=== PATIENT | male | born 1955 | race Caucasian/White ===

== ENCOUNTER → 2024-01-29 08:38 | Outpatient (BNVA) | payer MEDICARE, SELFPAY | PROVIDERS: PCP Nurse Practitioner; Referring Provider Registered Nurse; Visit Provider Orthopaedic Surgery | DX: M54.50 Low back pain, unspecified (principal); M54.9 Dorsalgia, unspecified; G89.29 Other chronic pain | CPT/HCPCS: 72110; 99204 ==

== ENCOUNTER 2024-03-09 10:50 | Observation (INO) | payer MEDICARE, SELFPAY ==
[2024-03-09] VITALS (19 sets, daily range): BP systolic 124–166; BP diastolic 58–86; PULSE 45–58; RESP 11–99; TEMP 36.4–36.7; O2SAT 90–98; BMI 30.3; BMI 30.5
--- NOTE | 2024-03-09 10:51 | ECG_ITS ---
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 Measurements Intervals [place] Rate: 49 P: 31 MO: 163 QRS: -2 QRSD: 93 T: 40 QT: 427 QTc: 388 Interpretive Statements SINUS BRADYCARDIA No previous ECG available for comparison Electronically Signed On 03-09-2024 17:50:21 CDT by Star Fu M.D. [id number]
--- NOTE | 2024-03-09 10:53 | ECG_ITS ---
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 Measurements Intervals [place] Rate: 47 P: 35 ND: 149 QRS: 1 QRSD: 106 T: 35 QT: 442 QTc: 393 Interpretive Statements SINUS BRADYCARDIA MODERATE VOLTAGE CRITERIA FOR LVH, CONSIDER NORMAL VARIANT [MEETS CRITERIA IN ONE OF: R(aVL), S(V1), R(V5), R(V5/V6)+S(V1)] Compared to ECG 03/09/2024 10:51:59 No significant changes Electronically Signed On 03-09-2024 17:47:16 CDT by Star Fu M.D. [id number]
--- NOTE | 2024-03-09 10:53 | XRR_ITS ---
PROCEDURE INFORMATION: Exam: XR Chest Exam date and time: 03/09/2024 11:28 AM Age: 68 years old Clinical indication: Pain; Angina pectoris; Additional info: Chest pain TECHNIQUE: Imaging protocol: Radiologic exam of the chest. Views: 1 view. COMPARISON: CT thoracic spin wo con* [id number] 04/15/2018 12:46 PM FINDINGS: Lungs: No consolidation. Pleural spaces: No sizable pleural effusion or pneumothorax. Heart/Mediastinum: No cardiomegaly. Bones/joints: Unremarkable. XR/XR chest 1V portable [id number] IMPRESSION: No acute intrathoracic findings.
--- NOTE | 2024-03-09 11:14 | ED_ITS ---
Documented by User: JESSICA Medrano 03/09/24 14:47 HPI - Chest Pain 2 General: Chief Complaint: Chest Pain Stated Complaint: chest pain Time Seen by Provider: 03/09/24 10:52 Source: patient and family Mode of arrival: ambulatory Limitations: no limitations History of Present Illness: Patient is a nice 68-year-old male with a history of hyperlipidemia and arthritis here along with his significant other for concerns of dyspnea with exertion and chest pain. Patient states over the past several weeks he has been noticing significant dyspnea with exertion. 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 He states the last Friday he began having what he describes as feeling like a small child was sitting on my chest thus he went to [facility] ED for evaluation. He had an extensive evaluation there including baseline/repeat troponins, EKGs, D-dimer, BNP, CXR all of which were unremarkable. Patient has been scheduled for an echocardiogram this upcoming Friday. He has also been scheduled for carotid artery ultrasounds, stress test, and cardiology follow-up all within the next two weeks. MD complaint: chest pain and other (dyspnea) Onset (ago): day(s) Timing of current episode: episodic Prior episodes: Yes Onset: during exertion Pain location: substernal Pain radiation: none Severity: moderate Quality: heaviness Relieving factors: rest Exacerbating factors: exertion Associated symptoms: Reports no associated symptoms and dyspnea; Deny abdominal pain, fever(s), nausea, palpitations or vomiting Treatment prior to arrival: none Risk Factors: Coronary artery disease risk factors: hyperlipidemia Thoracic aortic dissection risk factors: none Review of Systems 2 Const: Denies: fever(s), chills, body aches, fatigue or malaise Card: Reports: chest pain, pre-syncope and dyspnea on exertion; Denies: palpitations, irregular heart rhythm, edema, swelling of feet/ankles, orthopnea, leg pain with exertion or acrocyanosis Resp: Reports: dyspnea; Denies: productive cough, non-productive cough, wheezing, hemoptysis or chest congestion GI: Denies: abdominal pain, nausea, vomiting or diarrhea Musc: Denies: neck pain, back pain, extremity pain or joint pain Skin/Breast: Denies: rash Neuro: Reports: dizziness (with exertion ); Denies: headache(s), numbness in extremities, weakness in extremities or sensory changes PFSH ED 2 PFSH: Medical History Lower respiratory infection Acute bacterial sinusitis Social History Smoking and tobacco/nicotine status: current every day tobacco/nicotine user Physical Exam 2 Const: COMMON NORMALS: no acute distress, patient oriented x3, no limitations, healthy appearing, alert and well nourished GENERAL APPEARANCE: cooperative ORIENTATION/CONSCIOUSNESS: Yes awake, Yes oriented to person, Yes oriented to place and Yes oriented to time HENMT: COMMON NORMALS: normocephalic and atraumatic HEAD & SCALP: normal to inspection, normocephalic and atraumatic Neck/C-Spine: COMMON NORMALS: full ROM, no lymphadenopathy, supple and no meningeal signs Chest: COMMONS NORMALS: normal inspection of the chest Resp: COMMON NORMALS: normal respiratory effort and clear to auscultation bilaterally AUSCULTATION: clear to auscultation bilaterally Cardio: COMMON NORMALS: regular rate and regular rhythm RATE: regular rate RHYTHM: regular rhythm GI: COMMON NORMALS: Normal to inspection, nondistended, normoactive bowel sounds present, Soft to palpation, non-tender, No hepatosplenomegaly present and no masses PALPATION: Yes Soft to palpation and Yes No hepatosplenomegaly present : COMMON NORMALS: Yes no CVA tenderness BLADDER/KIDNEY EXAM: Yes no CVA tenderness Back/Pelvis: COMMON NORMALS: no CVA tenderness and thoracic and lumbar spine normal to inspection Extremity: COMMON NORMALS: normal to inspection, no clubbing, cyanosis or edema, no calf tenderness and no pedal edema GENERAL: Yes normal exam except as noted Neuro: COMMON NORMALS: patient oriented x3, moves all extremities, no focal motor deficits and no sensory deficits noted SENSORIUM/ORIENTATION: Yes alert, Yes oriented to person, Yes oriented to place and Yes oriented to time MENINGEAL SIGNS: Yes no meningeal signs Skin: COMMON NORMALS: no rashes or lesions noted GENERAL SKIN EXAM: no rashes or lesions noted Course 2 Consultations: Consultation #1: Dr. Larkin-recommends hospitalist admission and he will consult Consultation #2: Dr. Vincent-recommends admit to obs Vital Signs: Vital signs: Vital Signs Temperature 97.6 F 03/09/24 10:53 Pulse Rate 47 L 03/09/24 14:45 Respiratory Rate 14 03/09/24 14:45 Blood Pressure 140/79 03/09/24 14:45 Pulse Oximetry 97 03/09/24 14:45 Oxygen Delivery Me thod Room Air 03/09/24 14:45 MDM - Chest Pain Medical Decision Making Patient is a nice 68-year-old male with a history of hyperlipidemia here for complaints of dyspnea with exertion accompanied with lightheadedness/dizziness/presyncopal episodes, and worsening episodes of chest pain. Symptoms are mainly exertional and improved with rest. Patient's workup here showing a normal baseline troponin. D-dimer is normal. CXR is unremarkable. BNP is pending. EKG showing sinus bradycardia in the 40s. Discussed case with Dr. Rangel who recommends consulting with Dr. Larkin for possible hospitalization. After speaking to him, he does recommend admission to hospitalist due to worsening symptoms and he will consult on patient. DDx include unstable angina, sick sinus syndrome, CAD, symptomatic bradycardia, cardiomyopathy, CHF. Medical Records I reviewed the patient's medical records. Lab Data I reviewed the patient's lab results. 03/09/24 11:08 03/09/24 11:08 Radiology Impressions Chest X-Ray 03/09/24 10:53 IMPRESSION: No acute intrathoracic findings. Laboratory Results WBC 4.97 10^3/uL (3.29-11.43) 03/09/24 11:08 RBC 4.85 10^6/uL (3.85-5.65) 03/09/24 11:08 Hgb 15.40 g/dL (11.27-16.99) 03/09/24 11:08 Hct 45.7 % (37-53) 03/09/24 11:08 MCV 94.2 fl (82-101) 03/09/24 11:08 MCH 31.8 pg (27-33) 03/09/24 11:08 MCHC 33.7 g/dL (30-55) 03/09/24 11:08 RDW 12.5 % (12.1-15.1) 03/09/24 11:08 Plt Count 206 10^3/cmm (157-399) 03/09/24 11:08 MPV 9.7 fL (7.4-10.4) 03/09/24 11:08 Neut % (Auto) 57.4 % 03/09/24 11:08 Lymph % (Auto) 31.4 % 03/09/24 11:08 [place] % (Auto) 8.0 % 03/09/24 11:08 Eos % (Auto) 2.6 % 03/09/24 11:08 Baso % (Auto) 0.4 % 03/09/24 11:08 Neut # (Auto) 2.85 10^3/uL (1.8-7.7) 03/09/24 11:08 Lymph # (Auto) 1.6 10^3/uL (0.8-4.8) 03/09/24 11:08 [place] # (Auto) 0.4 10^3/uL (0.2-0.9) 03/09/24 11:08 Eos # (Auto) 0.1 10^3/uL (0.0-0.8) 03/09/24 11:08 Baso # (Auto) 0.0 10^3/uL (0.0-0.1) 03/09/24 11:08 Nucleated RBC % (auto) 0 % 03/09/24 11:08 Nucleated RBCs # 0.0 /100WBC 03/09/24 11:08 D-Dimer 0.56 ug/mLFEU (0-0.59) 03/09/24 11:08 Sodium 141 mmol/L (136-145) 03/09/24 11:08 Potassium 4.7 mmol/L (3.5-5.1) 03/09/24 11:08 Chloride 106 mmol/L (98-107) 03/09/24 11:08 Carbon Dioxide 25 mmol/L (22-29) 03/09/24 11:08 Anion Gap 14.7 (5-19) 03/09/24 11:08 BUN 19 mg/dL (8-23) 03/09/24 11:08 Creatinine 1.1 mg/dL (0.7-1.2) 03/09/24 11:08 GFR Calculation 66.4 mL/min (90-130) L 03/09/24 11:08 Glucose 88 mg/dL (65-115) 03/09/24 11:08 Calculated Osmolality 294 mOsm/kg (285-295) 03/09/24 11:08 Calcium 9.6 mg/dL (8.5-10.5) 03/09/24 11:08 Total Bilirubin 0.4 mg/dL (0.15-1.2) 03/09/24 11:08 AST 23 U/L (0-40) 03/09/24 11:08 ALT 21 U/L (0-41) 03/09/24 11:08 Alkaline Phosphatase 75 U/L (40-130) 03/09/24 11:08 Troponin T Baseline 9 ng/L (0-15) 03/09/24 11:08 Troponin T 120 Minute 8.32 ng/L (0-15) 03/09/24 12:49 Delta Troponin T -0.68 ABS# (0-10) L 03/09/24 12:49 NT-Pro-B Natriuret Pep < 36 pg/mL (0-125) 03/09/24 12:49 Total Protein 7.7 g/dL (6.6-8.7) 03/09/24 11:08 Albumin 4.3 g/dL (3.5-5.2) 03/09/24 11:08 Globulin 3.4 g/dL (1.3-4.6) 03/09/24 11:08 All radiology interpretation(s) finalized by discharge Discharge Plan Discharge Patient Disposition: Placed in Observation Clinical Impression: Dyspnea on minimal exertion, Chest pain, Bradycardia Coding Level of Care Code ED Lead Burner Helper for Chg Fwd Documented by User: Dane Rangel DO 03/09/24 14:54 HPI - Chest Pain 2 General: Chief Complaint: Chest Pain Stated Complaint: chest pain Time Seen by Provider: 03/09/24 10:52 [facility] ED 2 PFSH: Medical History Lower respiratory infection Acute bacterial sinusitis Social History Smoking and tobacco/nicotine status: current every day tobacco/nicotine user Course 2 Vital Signs: Vital signs: Vital Signs Temperature 97.6 F 03/09/24 10:53 Pulse Rate 47 L 03/09/24 14:45 Respiratory Rate 14 03/09/24 14:45 Blood Pressure 140/79 03/09/24 14:45 Pulse Oximetry 97 03/09/24 14:45 Oxygen Delivery Me thod Room Air 03/09/24 14:45 MDM - Chest Pain Medical Decision Making Patient is a nice 68-year-old male with a history of hyperlipidemia here for complaints of dyspnea with exertion accompanied with lightheadedness/dizziness/presyncopal episodes, and worsening episodes of chest pain. Symptoms are mainly exertional and improved with rest. Patient's workup here showing a normal baseline troponin. D-dimer is normal. CXR is unremarkable. BNP is pending. EKG showing sinus bradycardia in the 40s. Discussed case with Dr. Rangel who recommends consulting with Dr. Larkin for possible hospitalization. After speaking to him, he does recommend admission to hospitalist due to worsening symptoms and he will consult on patient. DDx include unstable angina, sick sinus syndrome, CAD, symptomatic bradycardia, cardiomyopathy, CHF. Chart reviewed and patient discussed with midlevel. Agree with assessment and plan. Lab Data 03/09/24 11:08 03/09/24 11:08 Radiology Impressions Chest X-Ray 03/09/24 10:53 IMPRESSION: No acute intrathoracic findings. Laboratory Results WBC 4.97 10^3/uL (3.29-11.43) 03/09/24 11:08 RBC 4.85 10^6/uL (3.85-5.65) 03/09/24 11:08 Hgb 15.40 g/dL (11.27-16.99) 03/09/24 11:08 Hct 45.7 % (37-53) 03/09/24 11:08 MCV 94.2 fl (82-101) 03/09/24 11:08 MCH 31.8 pg (27-33) 03/09/24 11:08 MCHC 33.7 g/dL (30-55) 03/09/24 11:08 RDW 12.5 % (12.1-15.1) 03/09/24 11:08 Plt Count 206 10^3/cmm (157-399) 03/09/24 11:08 MPV 9.7 fL (7.4-10.4) 03/09/24 11:08 Neut % (Auto) 57.4 % 03/09/24 11:08 Lymph % (Auto) 31.4 % 03/09/24 11:08 [place] % (Auto) 8.0 % 03/09/24 11:08 Eos % (Auto) 2.6 % 03/09/24 11:08 Baso % (Auto) 0.4 % 03/09/24 11:08 Neut # (Auto) 2.85 10^3/uL (1.8-7.7) 03/09/24 11:08 Lymph # (Auto) 1.6 10^3/uL (0.8-4.8) 03/09/24 11:08 [place] # (Auto) 0.4 10^3/uL (0.2-0.9) 03/09/24 11:08 Eos # (Auto) 0.1 10^3/uL (0.0-0.8) 03/09/24 11:08 Baso # (Auto) 0.0 10^3/uL (0.0-0.1) 03/09/24 11:08 Nucleated RBC % (auto) 0 % 03/09/24 11:08 Nucleated RBCs # 0.0 /100WBC 03/09/24 11:08 D-Dimer 0.56 ug/mLFEU (0-0.59) 03/09/24 11:08 Sodium 141 mmol/L (136-145) 03/09/24 11:08 Potassium 4.7 mmol/L (3.5-5.1) 03/09/24 11:08 Chloride 106 mmol/L (98-107) 03/09/24 11:08 Carbon Dioxide 25 mmol/L (22-29) 03/09/24 11:08 Anion Gap 14.7 (5-19) 03/09/24 11:08 BUN 19 mg/dL (8-23) 03/09/24 11:08 Creatinine 1.1 mg/dL (0.7-1.2) 03/09/24 11:08 GFR Calculation 66.4 mL/min (90-130) L 03/09/24 11:08 Glucose 88 mg/dL (65-115) 03/09/24 11:08 Calculated Osmolality 294 mOsm/kg (285-295) 03/09/24 11:08 Calcium 9.6 mg/dL (8.5-10.5) 03/09/24 11:08 Total Bilirubin 0.4 mg/dL (0.15-1.2) 03/09/24 11:08 AST 23 U/L (0-40) 03/09/24 11:08 ALT 21 U/L (0-41) 03/09/24 11:08 Alkaline Phosphatase 75 U/L (40-130) 03/09/24 11:08 Troponin T Baseline 9 ng/L (0-15) 03/09/24 11:08 Troponin T 120 Minute 8.32 ng/L (0-15) 03/09/24 12:49 Delta Troponin T -0.68 ABS# (0-10) L 03/09/24 12:49 NT-Pro-B Natriuret Pep < 36 pg/mL (0-125) 03/09/24 12:49 Total Protein 7.7 g/dL (6.6-8.7) 03/09/24 11:08 Albumin 4.3 g/dL (3.5-5.2) 03/09/24 11:08 Globulin 3.4 g/dL (1.3-4.6) 03/09/24 11:08 Discharge Plan Discharge Patient Disposition: Placed in Observation Clinical Impression: Dyspnea on minimal exertion, Chest pain, Bradycardia Coding Level of Care Code ED Lead Burner Helper for Robin Diamond
[2024-03-09 11:15] LABS: Basophils % 0.4 %; Eosinophils # 0.1 10^3/uL (0.0-0.8); Eosinophils % 2.6 %; Hematocrit 45.7 % (37-53); Lymphocytes # 1.6 10^3/uL (0.8-4.8); Lymphocytes % 31.4 %; Mean Corpuscular HGB Conc 33.7 g/dL (30-55); Mean Corpuscular Hemoglobin 31.8 pg (27-33); Mean Corpuscular Volume 94.2 fl (82-101); Mean Platelet Volume 9.7 fL (7.4-10.4); Monocytes # 0.4 10^3/uL (0.2-0.9); Neutrophils # 2.85 10^3/uL (1.8-7.7); Neutrophils % 57.4 %; Nucleated Red Blood Cells % 0 %; Platelet Count 206 10^3/cmm (157-399); Red Blood Count 4.85 10^6/uL (3.85-5.65); Red Cell Distribution Width 12.5 % (12.1-15.1); White Blood Count 4.97 10^3/uL (3.29-11.43)
[2024-03-09 11:31] LABS: Alanine Aminotransferase 21 U/L (0-41); Albumin Level 4.3 g/dL (3.5-5.2); Alkaline Phosphatase 75 U/L (40-130); Aspartate Amino Transferase 23 U/L (0-40); Blood Urea Nitrogen 19 mg/dL (8-23); Calcium 9.6 mg/dL (8.5-10.5); Carbon Dioxide 25 mmol/L (22-29); Chloride 106 mmol/L (98-107); Creatinine Clr Calc Pharmacy 78.0921; Globulin 3.4 g/dL (1.3-4.6); Glomerular Filtration Rate 66.4 mL/min (90-130); Glucose 88 mg/dL (65-115); Osmolality Calculated 294 mOsm/kg (285-295); Sodium 141 mmol/L (136-145); Total Bilirubin 0.4 mg/dL (0.15-1.2); Total Protein 7.7 g/dL (6.6-8.7)
[2024-03-09 11:33] LABS: Anion Gap 14.7 (5-19); Potassium 4.7 mmol/L (3.5-5.1)
[2024-03-09 11:34] LABS: Troponin(5th) Baseline 9 ng/L (0-15)
[2024-03-09 11:50] LABS: D Dimer 0.56 ug/mLFEU (0-0.59)
[2024-03-09 13:12] LABS: Troponin 5 2HR 8.32 ng/L (0-15); Troponin 5 2HR Delta -0.68 ABS# (0-10)
[2024-03-09 13:24] LABS: NT Pro B Type Natriuretic Pept < 36 pg/mL (0-125)
--- NOTE | 2024-03-09 14:52 | USCV_ITS ---
Jon Salas Age: 68 Gender: M : 1955 Exam Date: 03/09/2024 17:11 Ordering Phys: Dane Rangel DO Technologist: CT Exam Location: [facility] [place] Indication: angina BP: 166 / 81 HR: 42 Rhythm: Sinus Technical Quality: Adequate MEASUREMENTS (Male / Female) Normal Values 2D ECHO LVOT Diameter 2.2 cm LV Ejection Fraction MOD 2C 47.3 % LV Ejection Fraction 2C AL 46.5 % LA Diameter 4.0 cm RA Systolic Volume 4C AL 55.3 ml RA Systolic Volume 4C MOD 51.7 ml Aorta at Sinotubular Diameter 2.9 cm M-MODE LA Ao Ratio MM 1.4 AV Cusp Separation MM 2.1 cm DOPPLER AV Peak Velocity 123.0 cm/s LVOT Peak Velocity 114.0 cm/s AV Area Cont Eq vti 3.9 cm squared AV Area Cont Eq pk 3.5 cm squared MV Peak Velocity 88.0 cm/s MV Area PHT 3.5 cm squared Mitral E to A Ratio 1.0 TV Peak Velocity 100.5 cm/s TR Peak Velocity 103.0 cm/s TR Peak Gradient 4.2 mmHg TV Peak E Velocity 69.0 cm/s Right Atrial Pressure 3.0 mmHg Pulmonary Artery Systolic Pressu 7.2 mmHg PV Peak Velocity 105.5 cm/s FINDINGS Left Ventricle Left ventricle is normal in size. LV systolic function is normal with EF of 55 to 60%. No regional wall abnormalities are seen. Right Ventricle Normal in size and function Right Atrium Normal in size Left Atrium Normal in size Mitral Valve Structurally normal mitral valve. Mild mitral regurgitation. Aortic Valve Aortic valve is thickened. No significant stenosis or regurgitation. Tricuspid Valve Insufficient TR jet to calculate RVSP. Pulmonic Valve Mild pulmonic regurgitation. Pericardium Normal Aorta Normal in size IVC Appears to be normal CONCLUSIONS LV systolic function is normal with EF of 55-60% Mild mitral regurgitation Mild pulmonic regurgitation No comparison studies are available. Star Fu MD (Electronically Signed) Final Date: 10 Mar 2024 09:38 S
--- NOTE | 2024-03-09 15:28 | PM.HP ---
Providers/Chief Complaint Admitting Physician: Julia Vincent MD Primary Care Provider: Jarrett Toscano Chief Complaint: chest pain History of Present Illness Jon Salas is a 68 year old male who presented to the emergency room with chief complaint of chest pain. He describes the pain as something sitting on my chest . It was in the substernal region and came on with minimal exertion. When he has this discomfort he is short of breath. At times he has been mildly diaphoretic. No nausea or vomiting. It was severe enough today to prompt him to come into the emergency room. He has had other episodes of similar discomfort over the last few weeks. He was seen at [facility] a week or so ago, underwent evaluation with what sounds like negative cardiac enzymes and EKGs. He was referred for outpatient echocardiogram and stress testing. These are scheduled for the end of this week or early next week. In talking with him he has had progressively worsening shortness of breath over time with decreasing amount of exertion. His describes him having increasing work of breathing with simply walking around lately. Previously dyspnea occurred with significant exertion only. In talking with him his father at the age of 58 of a heart attack. 1 brother in his 70s from heart problems and he has another brother who has been scheduled for an outpatient cardiac catheterization due to cardiac issues. He himself has never had any formal cardiac workup. He has a history of dyslipidemia for which he takes atorvastatin. He is known to smoke. No personal history of hypertension, diabetes, kidney disease or stroke. Workup in the emergency room today showed a baseline troponin of 9 with a 2-hour troponin of 8.32 leading to a negative delta. BNP was less than 36. Twelve-lead EKG revealed sinus bradycardia with rates in the mid 40s. He is on no medications to account for the bradycardia. He does describe episodes of dizziness with position changes at times and occasionally without position changes. He has not had any syncopal episodes. 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 It was a joint decision between him and his to come in to be evaluated today. Given persistent bradycardia and his cascade of symptoms combined with family history and personal risk factors he is being admitted for further evaluation and treatment. Review of Systems General: Reports: Other (ROS as per HPI or as otherwise noted here) Const: Denies: fever(s) ENMT: Denies: nasal congestion Card: Reports: chest pain, lightheadedness and dyspnea on exertion; Denies: palpitations, edema, syncope or orthopnea Resp: Reports: dyspnea; Denies: productive cough, non-productive cough or chest congestion GI: Denies: nausea, vomiting, change in bowel habits or hematochezia : Denies: difficulty urinating or hematuria Musc: Reports: back pain (chronic) Clay/Lymph: Reports: easy bleeding (if gets cuts/stuck, bleeds easily, free bleeder ); Denies: easy bruising Medications/Allergies Home Medications Medication Instructions Recorded Confirmed Last Taken Type fluoxetine 40 mg capsule 40 mg PO QPM 09/10/21 03/09/24 03/08/24 History atorvastatin 20 mg tablet 20 mg PO QPM 03/09/24 03/09/24 03/08/24 History meloxicam 15 mg tablet 15 mg PO QPM 03/09/24 03/09/24 03/08/24 History Allergies Allergy/AdvReac Type Severity Reaction Status Date / Time cyclobenzaprine Allergy ADR-Drowsy Verified 03/09/24 11:07 tizanidine Allergy ADR-Drowsy Verified 03/09/24 11:56 PFSH Acute PFSH: Medical History (Updated 03/09/24 @ 15:32 by Julia Vincent MD) Lumbar facet arthropathy Osteoarthritis Dyslipidemia Depression Surgical History (Updated 03/09/24 @ 16:08 by Julia Vincent MD) No pertinent past surgical history Family History (Updated 03/09/24 @ 16:09 by Julia Vincent MD) Father , age 58 heart disease CAD (coronary artery disease) Brother , age 70 heart disease CAD (coronary artery disease) Brother CAD (coronary artery disease) Social History (Updated 03/09/24 @ 16:10 by Julia Vincent MD) Smoking and tobacco/nicotine status: current every day tobacco/nicotine user Alcohol intake: never Substance/Drug Use: never Household members: spouse Current occupation: [employer] Vitals/I&O/Wt Last Vital Signs Temp 97.6 F 03/09/24 10:53 Pulse 46 L 03/09/24 15:15 Resp 17 03/09/24 15:15 BP 137/86 03/09/24 15:15 Pulse Ox 96 03/09/24 15:15 O2 Del Method Room Air 03/09/24 15:15 Weight last 48 hrs Weight 101.378 kg Physical Exam Narrative: Patient is awake and alert. Able to provide history. Extraocular movements intact. Moist membranes. Next supple. Lungs clear without wheezing noted. Regular bradycardiac rhythm. No murmurs or rubs. 2+ radial pulses bilaterally. Abdomen soft, nontender. No pitting edema. Speech clear, face symmetric, moves all extremities. No large bruises noted Data 03/09/24 11:08 03/09/24 11:08 Other Labs: Radiology Impressions Chest X-Ray 03/09/24 10:53 IMPRESSION: No acute intrathoracic findings. Laboratory Results WBC 4.97 10^3/uL (3.29-11.43) 03/09/24 11:08 RBC 4.85 10^6/uL (3.85-5.65) 03/09/24 11:08 Hgb 15.40 g/dL (11.27-16.99) 03/09/24 11:08 Hct 45.7 % (37-53) 03/09/24 11:08 MCV 94.2 fl (82-101) 03/09/24 11:08 MCH 31.8 pg (27-33) 03/09/24 11:08 MCHC 33.7 g/dL (30-55) 03/09/24 11:08 RDW 12.5 % (12.1-15.1) 03/09/24 11:08 Plt Count 206 10^3/cmm (157-399) 03/09/24 11:08 MPV 9.7 fL (7.4-10.4) 03/09/24 11:08 Neut % (Auto) 57.4 % 03/09/24 11:08 Lymph % (Auto) 31.4 % 03/09/24 11:08 [place] % (Auto) 8.0 % 03/09/24 11:08 Eos % (Auto) 2.6 % 03/09/24 11:08 Baso % (Auto) 0.4 % 03/09/24 11:08 Neut # (Auto) 2.85 10^3/uL (1.8-7.7) 03/09/24 11:08 Lymph # (Auto) 1.6 10^3/uL (0.8-4.8) 03/09/24 11:08 [place] # (Auto) 0.4 10^3/uL (0.2-0.9) 03/09/24 11:08 Eos # (Auto) 0.1 10^3/uL (0.0-0.8) 03/09/24 11:08 Baso # (Auto) 0.0 10^3/uL (0.0-0.1) 03/09/24 11:08 Nucleated RBC % (auto) 0 % 03/09/24 11:08 Nucleated RBCs # 0.0 /100WBC 03/09/24 11:08 D-Dimer 0.56 ug/mLFEU (0-0.59) 03/09/24 11:08 Sodium 141 mmol/L (136-145) 03/09/24 11:08 Potassium 4.7 mmol/L (3.5-5.1) 03/09/24 11:08 Chloride 106 mmol/L (98-107) 03/09/24 11:08 Carbon Dioxide 25 mmol/L (22-29) 03/09/24 11:08 Anion Gap 14.7 (5-19) 03/09/24 11:08 BUN 19 mg/dL (8-23) 03/09/24 11:08 Creatinine 1.1 mg/dL (0.7-1.2) 03/09/24 11:08 GFR Calculation 66.4 mL/min (90-130) L 03/09/24 11:08 Glucose 88 mg/dL (65-115) 03/09/24 11:08 Calculated Osmolality 294 mOsm/kg (285-295) 03/09/24 11:08 Calcium 9.6 mg/dL (8.5-10.5) 03/09/24 11:08 Total Bilirubin 0.4 mg/dL (0.15-1.2) 03/09/24 11:08 AST 23 U/L (0-40) 03/09/24 11:08 ALT 21 U/L (0-41) 03/09/24 11:08 Alkaline Phosphatase 75 U/L (40-130) 03/09/24 11:08 Troponin T Baseline 9 ng/L (0-15) 03/09/24 11:08 Troponin T 120 Minute 8.32 ng/L (0-15) 03/09/24 12:49 Delta Troponin T -0.68 ABS# (0-10) L 03/09/24 12:49 NT-Pro-B Natriuret Pep < 36 pg/mL (0-125) 03/09/24 12:49 Total Protein 7.7 g/dL (6.6-8.7) 03/09/24 11:08 Albumin 4.3 g/dL (3.5-5.2) 03/09/24 11:08 Globulin 3.4 g/dL (1.3-4.6) 03/09/24 11:08 Other data: VITAL SIGNS FROM PCP OFFICE dating back to 06/2023 A&P Assessment and plan (1) Chest pain: Unstable angina by description. Currently with sinus bradycardia but no other EKG changes. Has associated symptoms of shortness of breath, dizziness, diaphoresis. No personal history of CAD butr risk factors of dyslipidemia and tobacco use along with significant family history of coronary artery disease in father and brothers. (2) Dyspnea on minimal exertion: [place] secondary to above presrntly, but with smoking history could be a component of undiagnosed COPD contributing. (3) Bradycardia: Related to number one. Has had downward trend in heart rate since last fall. Symptomatic with dizziness. (4) Dyslipidemia: Chronically on statin therapy (5) Depression: Major depressive disorder, stable on chronic fluoxetine (6) Osteoarthritis: Predominantly low back pain and hip pain. On Meloxicam chronically. Has seen Dr Grijalva and been referred to Dr Gentile for facet ablations. Plan Tobacco use, does not desire nicotine replacement while here Patient reports that he bleeds easily when stuck/cut Observation admission currently Continue serial cardiac enzymes and EKGs Cardiology consultation to evaluate for cardiac catheterization Will need to cancel outpatient appointments for echo and stress test previously scheduled Echocardiogram Avoid any medications that may contribute to worsening bradycardia Add aspirin therapy Check magnesium level Check A1c and lipid panel for risk stratification Continue home atorvastatin Continue home fluoxetine Will currently hold meloxicam pending further cardiac evaluation Acetaminophen as needed for pain Requested outpt cardiac testing scheduled for next week be cancelled VTE prophylaxis: Lovenox at prophylactic dosing currently GI Prophylaxis: Not currently indicated Antibiotics: none Pending studies: 6-hour troponin and echocardiogram Telemetry: Ordered secondary to bradycardia Thacker: not currently indicated Line(s): peripheral IVs Disposition plan: Home with outpatient follow up anticipated at this time Code Status: Full Code Supportive care otherwise Findings, concerns and plans were discussed with patient and his and they were given an opportunity to ask questions Attestations Medical Necessity Statement*: Anticipated stay less than 2 midnights in this gentleman presenting with chest pain and shortness of breath also found to have some bradycardia. Review of external records shows that he has had some degree of sinus bradycardia at least since the fall of last year. 2-hour troponin delta is negative. Symptoms however are concerning for unstable angina given the progressive nature particularly in light of what appears to be worsening bradycardia over time. No medications to account for bradycardia. Has a history of hyperlipidemia and tobacco use but no personal history of known coronary artery disease. Diagnoses Chest pain R07.9 Dyspnea on minimal exertion R06.09 Bradycardia R00.1 Dyslipidemia E78.5 Depression F32.A Osteoarthritis M19.90
--- NOTE | 2024-03-09 16:06 | PM.CONSULT ---
Providers/Reason For Consult Consulting Physician/Specialty*: Star Fu MD/ Cardiology Reason for Consult*: Worsening angina Requesting Physician: Dr Rangel Attending Physician: Julia Vincent MD Primary Care Provider: Jarrett Toscano History of Present Illness History of Present Illness Jon Salas is a 68 year old male with past medical history of hypertension who has presented to hospital with substernal pressure. Patient was seen for similar symptoms about a week ago at outside hospital where ACS was ruled out. He has been having worsening chest pressure and shortness of breath. Minimal exertion brings symptoms on. EKG does not demonstrate significant ischemic changes however he is in sinus bradycardia. Troponins have not trended up. Review of Systems General: Reports: Other (ROS as per HPI or as otherwise noted here) Const: Denies: fever(s) ENMT: Denies: nasal congestion Card: Reports: chest pain, lightheadedness and dyspnea on exertion; Denies: palpitations, edema, syncope or orthopnea Resp: Reports: dyspnea; Denies: productive cough, non-productive cough or chest congestion GI: Denies: nausea, vomiting, change in bowel habits or hematochezia : Denies: difficulty urinating or hematuria Musc: Reports: back pain (chronic) Clay/Lymph: Reports: easy bleeding (if gets cuts/stuck, bleeds easily, free bleeder ); Denies: easy bruising Medications/Allergies Home Medications Medication Instructions Recorded Confirmed Last Taken Type fluoxetine 40 mg capsule 40 mg PO QPM 09/10/21 03/09/24 03/08/24 History atorvastatin 20 mg tablet 20 mg PO QPM 03/09/24 03/09/24 03/08/24 History meloxicam 15 mg tablet 15 mg PO QPM 03/09/24 03/09/24 03/08/24 History amlodipine 10 mg tablet 10 mg PO DAILY #60 tabs 03/10/24 Unknown Rx aspirin 81 mg tablet,delayed 81 mg PO DAILY #60 tabs 03/10/24 Unknown Rx release Allergies Allergy/AdvReac Type Severity Reaction Status Date / Time cyclobenzaprine Allergy ADR-Drowsy Verified 03/09/24 11:07 tizanidine Allergy ADR-Drowsy Verified 03/09/24 11:56 PFSH Acute PFSH: Medical History (Updated 03/11/24 @ 00:01 by BEBETO Eldridge) Bradycardia Chest pain Dyspnea on minimal exertion Lumbar facet arthropathy Osteoarthritis Dyslipidemia Depression Surgical History (Updated 03/09/24 @ 16:08 by Julia Vincent MD) No pertinent past surgical history Family History (Updated 03/09/24 @ 16:09 by Julia Vincent MD) Father , age 58 heart disease CAD (coronary artery disease) Brother , age 70 heart disease CAD (coronary artery disease) Brother CAD (coronary artery disease) Social History (Updated 03/09/24 @ 16:10 by Julia Vincent MD) Smoking and tobacco/nicotine status: current every day tobacco/nicotine user Alcohol intake: never Substance/Drug Use: never Household members: spouse Current occupation: [employer] Vitals/I&O/Wt Last Vital Signs Temp 97.6 F 03/09/24 10:53 Pulse 49 L 03/09/24 15:45 Resp 14 03/09/24 15:45 BP 154/80 03/09/24 15:45 Pulse Ox 97 03/09/24 15:45 O2 Del Method Room Air 03/09/24 15:45 Weight last 48 hrs Weight 223 lb 8 oz Physical Exam Narrative: GENERAL: Patient is alert, awake and oriented x3. [] NECK: No jugular vein distension. [] HEENT: No cyanosis. No icterus. No pallor. [] HEART: Regular S1 and S2. No murmur, rub or gallop. [] LUNGS: Clear to auscultate bilaterally. [] CENTRAL NERVOUS SYSTEM: Grossly nonfocal. [] EXTREMITIES: Lower extremities with no edema bilaterally Data 03/09/24 11:08 03/09/24 11:08 A&P Assessment and plan (1) Chest pain: (2) Dyspnea on minimal exertion: (3) Bradycardia: (4) Dyslipidemia: Plan Patient has presented with significant worsening symptoms of chest pain and dyspnea on exertion. We will proceed with coronary angiogram with possible PCI. Risks and benefits discussed. This is his second visit to hospital/ER in the last 1 to 2 weeks. NPO past midnight Order echocardiogram Thank you for involving us with care of this patient. We will continue to follow. Please call with questions. Consult Attestations Medical Necessity Statement: Care expected to cross 2 midnights. Coding Level of Care Code Acute Code for [facility] Fwd Diagnoses Chest pain R07.9 Dyspnea on minimal exertion R06.09 Bradycardia R00.1 Dyslipidemia E78.5
[2024-03-09] MEDS: atorvastatin 40 mg Tablet 20 MG PO (16:29)
[2024-03-09] MEDS: enoxaparin 40 mg/0.4 mL Syringe SUBCUT (16:30)
--- NOTE | 2024-03-09 16:53 | ECG_ITS ---
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 Measurements Intervals [place] Rate: 53 P: 48 WA: 166 QRS: 9 QRSD: 105 T: 48 QT: 454 QTc: 428 Interpretive Statements SINUS BRADYCARDIA WITH OCCASIONAL VENTRICULAR PREMATURE COMPLEXES MINIMAL VOLTAGE CRITERIA FOR LVH, CONSIDER NORMAL VARIANT [MEETS CRITERIA IN ONE OF: R(aVL), S(V1), R(V5), R(V5/V6)+S(V1)] Compared to ECG 03/09/2024 12:03:07 Ventricular premature complex(es) now present Electronically Signed On 03-10-2024 16:29:52 CDT by Star Fu M.D. [id number]
[2024-03-09 17:19] LABS: Magnesium 2.2 mg/dL (1.7-2.3)
[2024-03-09 18:04] LABS: Troponin 5 6HR 8.86 ng/L (0-15)
[2024-03-09 18:10] LABS: Troponin 5 6HR Delta -0.14 ng/L (0-12)
[2024-03-09] MEDS: fluoxetine 20 mg Capsule 40 MG PO (20:46)
[2024-03-10] VITALS (21 sets, daily range): BP systolic 109–170; BP diastolic 63–85; PULSE 0–57; RESP 15–29; TEMP 36.6–36.7; O2SAT 89–97; BMI 30.5
[2024-03-10 05:37] LABS: Estmated Average Glucose 105; Hemoglobin A1C 5.3 % (4.0-6.0)
[2024-03-10 05:41] LABS: Chol HDL Ratio 3.89 mg/dL (1.0-5.00); Cholesterol 144 mg/dL (0-200); HDL Cholesterol 37 mg/dL (60-100); LDL Cholesterol Calculated 86 mg/dL (50-129); LDL HDL Ratio 2.32 RATIO (0.00-3.22); Triglycerides 107 mg/dL (0-150)
[2024-03-10] MEDS: diphenhydrAMINE 50 mg Capsule PO (05:57)
[2024-03-10] MEDS: aspirin 325 mg Tablet PO (05:57)
[2024-03-10] MEDS: sodium chloride 0.9% 1,000 ML 50 ML IV (05:57)
--- NOTE | 2024-03-10 06:00 | XACV_ITS ---
Exam Room: [facility] Ht: 183 cm Wt: 102 kg BSA: 2.30 m2 Gender: Male : 1955 Any Known Allergies: Other Exam Priority: Routine Procedure(s): Procedure Description: Diagnostic procedure Procedure Description: Coronary IVUS Procedure Description: Miscellaneous Procedure Description: Angio-Seal Procedure Description: ACT Procedure Description: Coronary Angiography Procedure Description: Pressure Wire Diagnostic Cath Status: Urgent Diagnostic Findings * Left Main has mild 20% stenosis. * Right Coronary Artery has no significant disease. * Ostial Left Anterior Descending: mild to moderate 40% stenosis, NOHELIA: 3 flow. * Proximal Circumflex: moderate 50% stenosis, NOHELIA: 3 flow. * Coronary angiography shows right dominance. Interventional Findings * Procedure detail: We engaged left main artery with XB 3.5 guide catheter. IV heparin was administered to maintain anticoagulation. After normalization, IFR wire was advanced into the circumflex artery. iFR value was 1.0 was obtained. As it was nonischemic, IFR wire was removed. Ostial LAD was assessed with IVUS which showed a minimum luminal area of 3.7 mm2. As this was nonsignificant, we decided to treat it medically.Guidewire and guidecatheter were removed. 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 . Conclusions 1. There is moderate coronary artery disease with two vessel disease. Non significant based on iFR and IVUS data. Medical therapy. Recommendations * Aggressive risk factor modification. * Outpatient cardiology follow up in 4 weeks. Interventional RX Recommendation: medical therapy and/or counseling Diagnostic RX Recommendation: other cardiac therapy w/o CABG/PCI Anticoagulation: Heparin Pressures Phase:Rest AO : 106 / 69 ( 85 ) @ 8:27:00 AM 109 / 103 ( 79 ) @ 8:28:00 AM 129 / 83 ( 103 ) @ 8:42:00 AM 156 / 80 ( 108 ) @ 8:47:00 AM 144 / 82 ( 106 ) @ 8:49:00 AM 145 / 85 ( 109 ) @ 8:58:00 AM 159 / 88 ( 115 ) @ 9:01:00 AM 162 / 159 ( 111 ) @ 9:06:00 AM Clinical Evaluation EBL: 5mL-10mL Procedural Details Procedure Consent Obtained. Current Diagnosis : NSTEMI. Pre-Procedure Time Out. Identified patient by full name and date of as verbalized by the patient/guarantor. Does the consent match the physician's order: Yes. Accurate & Complete Informed Consent: Yes. Inpatient/Outpatient History & Physical on Chart: Yes. If H&P is completed, is and addenduem needed: No; If yes, is the addendum complete: N/A. Visualize and Verify Site with Patient/Guarantor: N/A. Relevant Radiology Images available: Yes. Pre-op teaching completed and patient verbalized understanding. The risks, benefits, and alternatives of sedation and/or procedure were discussed by physician. The patient agrees to continue. Procedure started. [facility] Clinical Fraility Score: 3: Managing Well. 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 Chest Pain Symptom Assessment: Typical Angina Symptoms. Correct patient, site and procedure confirmed by cath team. Current diagnosis: NSTEMI. PERRLA. Strong, equal hand manager solar bilaterally. Lungs clear x 5 lobes. IV Site on Arrival: 18 gauge in the left anticubital. IV Fluids: 0.9% NaCl at KVO. 0 mL infused prior to starch factory laborer. Oxygen started at 2liters/min via nasal canula. right groin was prepped with chloroprep then draped in the usual sterile fashion. right radial was prepped with chloroprep then draped in the usual sterile fashion. Baseline sample Acquired. HR: 28 BPM. Physician arrived. Physician scrubbed in. Immediate Pre-Procedure Time Out. Correct Patient: Yes; Correct Procedure: Yes; Correct Site: Yes; Correct Patient Position: Yes; Correct Supplies: Yes; Dried Flammable Prep: Yes; Blood Products Available: N/A;. Lidocaine 1% infiltrated to the right radial. Arterial access obtained. A 5 algerian TIG catheter in over wire. Multiple views taken of right coronary artery. Catheter removed over the exchange wire. A 5 algerian JL3.5 catheter in over wire. Catheter removed over the exchange wire. 6 algerian XB 3 guide catheter was inserted over the wire. Catheter removed over the exchange wire. A 5 algerian JL4 catheter in over wire. Catheter removed over the exchange wire. A TR Band was successful obtaining hemostatsis at the Right Radial artery insertion site. Lidocaine 1% infiltrated to the right groin. Arterial access obtained with micropuncture set. A 5 algerian JL4 catheter in over wire. Multiple views taken of left coronary artery. Catheter removed over the exchange wire. 6 algerian XB 3 guide catheter was inserted over the wire. Guide seated in the left coronary system. IFR guidewire was advanced through the guide catheter to lesion in the prox Circ. Runthrough guidewire was advanced through the guide catheter to lesion in the prox Circ. IFR wire out. IVUS catheter inserted and advanced OTW. IVUS catheter out OTW. IFR inserted through the guide catheter and advanced to the CX. Runthrough wire out. IFR Results: 1.0. Wire out. IFR wire inserted and advanced to the LAD. IVUS catheter inserted OTW and advanced to the LAD. IVUS measurements obtained. IVUS catheter out OTW. Wire out. Guide catheter out. ACT drawn. Results 369 seconds. Therapeutic limits - pre-heparin administration 90-150 seconds and monitoring heparin during a vascular procedure >250 seconds. A Right femoral angiogram was performed to determine safe placement of closure device. A Angio-Seal VIP ([place]) was successful obtaining hemostatsis at the Right Femoral artery insertion site. Post Procedure: Pulses reassessed and unchanged. PERRLA. Strong, equal hand manager solar bilaterally. No VTE prophylaxis required. Medication's Wasted: Heparin = 1000 units. Total IV fluids: 100 mL. Medication's Wasted: Nitro = 49.8 mcg. Medication's Wasted: Other = Fentanyl 50 mcg. Complications: None. Estimated blood loss: 5mL-10mL. Responsiveness - Normal response to verbal stimuli; alert and oriented, PERRLA. Airway - Unaffected, no intervention required; spontaneous ventilation. Circulation: W/N/L, pulses unchanged. Nausea/Vomiting: No. Procedure completed. Patient transferred by bed to CPRU. Vital chart was stopped. Access Site Site: Right Radial artery Sheath Size: 6 Fr Hemostasis Method: TR Band Hemostasis Success: Successful Site: Right Femoral artery Sheath Size: 6 Fr Hemostasis Method: Angio-Seal VIP ([facility]) Hemostasis Success: Successful Procedure Medications Start: 7:04 AM Stop: 7:04 AM Medication: Versed Amount: 1 mg Route: I.V. Start: 7:06 AM Stop: 7:06 AM Medication: Fentanyl Amount: 25 mcg Route: I.V. Start: 7:14 AM Stop: 7:14 AM Medication: Fentanyl Amount: 25 mcg Route: I.V. Start: 7:15 AM Stop: 7:15 AM Medication: Nitrogylcerin Amount: 200 mcg Route: I.A. Start: 7:17 AM Stop: 7:17 AM Medication: Heparin Amount: 5000 units Route: I.V. Start: 7:37 AM Stop: 7:37 AM Medication: Versed Amount: 1 mg Route: I.V. Start: 7:49 AM Stop: 7:49 AM Medication: Heparin Amount: 4000 units Route: I.V. Start: 8:06 AM Stop: 8:06 AM Medication: Heparin Amount: 1000 units Route: I.V. I, the attending physician, have reviewed and verified all procedure medications. Yes, all medications given per verbal order History/Risk Factors Hypertension: No Dyslipidemia: Yes Peripheral Arterial Disease (PAD): No Myocardial Infarction (KS): No Obesity: No Renal Disease: No Tobacco Use: Current/Recent(w/in 1 year) Prior Interventions PCI: No CABG: No Valve Surgery: No Report Signatures Finalized by Star Fu MD on 03/21/2024 12:11 PM
--- NOTE | 2024-03-10 07:00 | PC.NURSE ---
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 Patient denies pain at this time.
--- NOTE | 2024-03-10 07:08 | W.PM.OPSUD ---
Surgery/Procedure H&P Update DATE OF PROCEDURE: March 10, 2024 DATE H&P PERFORMED: 03/09/24 H&P UPDATE INFORMATION: I have reviewed H&P completed within last 30 days, I have examined patient prior to procedure and No changes to prior documentation PREOP DIAGNOSIS: Worsening angina PRIMARY INDICATION FOR PROCEDURE: Worsening angina PLANNED PROCEDURE: Left heart cath with possible percutaneous coronary intervention PATIENT REASSESSED PRIOR TO SEDATION, WITH NO CHANGE NOTED: Yes PHYSICAL EXAM: alert, oriented x 3, clear to auscultation bilaterally and regular rate & rhythm AIRWAY EVAL/ANESTHESIA PLAN: normal airway, ASA III, Local Anesthesia, Risks, benefits & alternatives of sedation and/or procedure discussed and Patient agrees to continue as planned ADDITIONAL INFORMATION: Moderate sedation
--- NOTE | 2024-03-10 08:30 | SUR.EXTENDED ---
Received the patient back from the laborer cutting tool via bed s/p Diagnostic [facility]. Patient drowsy. Awakens to verbal stimuli. A & 0 x 3. monitoring analyst placed and vital signs obtained. Right femoral access site with deployed Angioseal. Bedrest x 4 hours, may ambulate at 1220. Right radial access site with intact TR band. No bleeding or hematoma noted at ither site. Dressing D/I. Will transfer to room 102 after recovery. Family at bedside. No concerns voiced at this time.
--- NOTE | 2024-03-10 08:59 | PC.NURSE ---
0900 dose of Aspirin 81mg PO not given at this time. Patient received Aspirin 325 PO at 0557 this morning.
--- NOTE | 2024-03-10 09:29 | PC.NURSE ---
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 Patient has TR Band to right wrist and angioseal to right groin. Both sites are free from obvious bleeding or hematoma formation. Pulse palpable. Patient denies pain to sites. Instructed patient on site care and restrictions. Patient and spouse verbalized complete understanding.
--- NOTE | 2024-03-10 09:45 | PC.NURSE ---
Corrected SDOH documentation at this time.
--- NOTE | 2024-03-10 10:20 | P.PN_ITS ---
Subjective 2 Subjective: Patient had coronary angiogram today that showed moderate proximal left circumflex artery stenosis. IFR was negative for ischemia. Mild to moderate ostial LAD stenosis was also confirmed to be nonsevere by IVUS. Vitals/I&O/Wt Last Vital Signs Temp 98.0 F 03/10/24 09:28 Pulse 51 L 03/10/24 09:32 Resp 15 03/10/24 09:32 BP 141/78 03/10/24 09:32 Pulse Ox 97 03/10/24 09:32 O2 Del Method Room Air 03/10/24 09:28 03/09/24 03/10/24 03/10/24 22:59 06:59 14:59 Intake Total 240 / 240 Balance 240 / 240 Weight last 48 hrs Weight 225 lb Weight 225 lb Weight 223 lb 8 oz Physical Exam 2 Narrative: GENERAL: Patient is alert, awake and oriented x3. [] NECK: No jugular vein distension. [] HEENT: No cyanosis. No icterus. No pallor. [] HEART: Regular S1 and S2. No murmur, rub or gallop. [] LUNGS: Clear to auscultate bilaterally. [] CENTRAL NERVOUS SYSTEM: Grossly nonfocal. [] EXTREMITIES: Lower extremities with no edema bilaterally. Data 03/09/24 11:08 03/09/24 11:08 A&P Assessment and plan (1) Chest pain: (2) Dyspnea on minimal exertion: (3) Bradycardia: (4) Dyslipidemia: Plan Patient underwent coronary angiogram that demonstrated moderate to proximal left circumflex artery stenosis s/p IFR that is nonischemic. medical therapy. Ostial LAD mild to moderate stenosis also found to be nonsignificant on IVUS. We can start a low-dose Imdur. Will need aggressive blood pressure management. Start amlodipine 10 mg daily. ECHO shows normal LV systolic function Thank you for involving us with care of this patient. We will continue to follow. Please call with questions. Attestations 2 Medical Necessity Statement*: Care expected to cross 2 midnights. Coding Level of Care Code Acute Code for [facility] Fwd Diagnoses Chest pain R07.9 Dyspnea on minimal exertion R06.09 Bradycardia R00.1 Dyslipidemia E78.5
[2024-03-10] MEDS: amlodipine 10 mg Tablet PO (10:41)
--- NOTE | 2024-03-10 11:16 | PC.NURSE ---
Initiated air removal from TR Band at 1000 removing 2-3ml air every 15-20min until all air removed at this time. No s/s of bleeding or hematoma formation observed. Covered site with 2x[address] Fu at bedside. Will continue to monitor.
--- NOTE | 2024-03-10 12:06 | PM.DCS ---
Discharge Providers Date of Admission: 03/09/24 15:38 Date of Discharge: March 10, 2024 Attending Provider at Admission: Julia Vincent MD Attending Provider at Discharge: Amisha Mansfield MD Primary Care Provider: Jarrett Toscano Diagnoses at Discharge Discharge Diagnosis (1) Chest pain: Status: Acute (2) Dyspnea on minimal exertion: Status: Acute (3) Bradycardia: Status: Acute (4) Dyslipidemia: Status: Chronic Reason for Visit Reason for Visit: chest pain Hospital Course Hospital Course 68-year male who was evaluated and managed for chest pain with bradycardia, cardiology was consulted, patient went for coronary angiogram next day which showed atherosclerotic disease no stents were placed, his atherosclerotic disease was about 40 to 50%, EKG showed sinus bradycardia, patient is not on any beta blocking agent, no clinical signs of fluid overload Echo showed preserved ejection fraction, no wall motion abnormality, I did convey my concerns relating to bradycardia I have explained what other symptoms of low heart rate which are chest pain shortness of breath confusion and low blood pressure, patient has none of that. At this point would not look into pacemaker evaluation, he may follow-up with cardiology outpatient within 2 weeks, cardiology has cleared him to go home today with stable hemodynamics, TR wristband has been removed. Hemodynamically stable. Hemoglobin A1c is 5.3. D-dimer unremarkable, , magnesium 2.2. Physical Exam Narrative: Pleasant cooperative GCS 15 Heart rate fluctuate between 55-60, sinus rhythm Hemodynamically stable Currently on room air Discharge Data Studies Completed and Pending Completed Studies During Hospitalization Category Date Time Status XR chest 1V portable [id number] Urgent Exams 03/09/24 10:53 Completed US echo complete [CV. 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 Laboratory Results WBC 4.97 10^3/uL (3.29-11.43) 03/09/24 11:08 RBC 4.85 10^6/uL (3.85-5.65) 03/09/24 11:08 Hgb 15.40 g/dL (11.27-16.99) 03/09/24 11:08 Hct 45.7 % (37-53) 03/09/24 11:08 MCV 94.2 fl (82-101) 03/09/24 11:08 MCH 31.8 pg (27-33) 03/09/24 11:08 MCHC 33.7 g/dL (30-55) 03/09/24 11:08 RDW 12.5 % (12.1-15.1) 03/09/24 11:08 Plt Count 206 10^3/cmm (157-399) 03/09/24 11:08 MPV 9.7 fL (7.4-10.4) 03/09/24 11:08 Neut % (Auto) 57.4 % 03/09/24 11:08 Lymph % (Auto) 31.4 % 03/09/24 11:08 Atkinson % (Auto) 8.0 % 03/09/24 11:08 Eos % (Auto) 2.6 % 03/09/24 11:08 Baso % (Auto) 0.4 % 03/09/24 11:08 Neut # (Auto) 2.85 10^3/uL (1.8-7.7) 03/09/24 11:08 Lymph # (Auto) 1.6 10^3/uL (0.8-4.8) 03/09/24 11:08 Atkinson # (Auto) 0.4 10^3/uL (0.2-0.9) 03/09/24 11:08 Eos # (Auto) 0.1 10^3/uL (0.0-0.8) 03/09/24 11:08 Baso # (Auto) 0.0 10^3/uL (0.0-0.1) 03/09/24 11:08 Nucleated RBC % (auto) 0 % 03/09/24 11:08 Nucleated RBCs # 0.0 /100WBC 03/09/24 11:08 D-Dimer 0.56 ug/mLFEU (0-0.59) 03/09/24 11:08 Sodium 141 mmol/L (136-145) 03/09/24 11:08 Potassium 4.7 mmol/L (3.5-5.1) 03/09/24 11:08 Chloride 106 mmol/L (98-107) 03/09/24 11:08 Carbon Dioxide 25 mmol/L (22-29) 03/09/24 11:08 Anion Gap 14.7 (5-19) 03/09/24 11:08 BUN 19 mg/dL (8-23) 03/09/24 11:08 Creatinine 1.1 mg/dL (0.7-1.2) 03/09/24 11:08 GFR Calculation 66.4 mL/min (90-130) L 03/09/24 11:08 Glucose 88 mg/dL (65-115) 03/09/24 11:08 Estimat Average Glucose 105 03/10/24 05:06 Hemoglobin A1c 5.3 % (4.0-6.0) 03/10/24 05:06 Calculated Osmolality 294 mOsm/kg (285-295) 03/09/24 11:08 Calcium 9.6 mg/dL (8.5-10.5) 03/09/24 11:08 Magnesium 2.2 mg/dL (1.7-2.3) 03/09/24 12:49 Total Bilirubin 0.4 mg/dL (0.15-1.2) 03/09/24 11:08 AST 23 U/L (0-40) 03/09/24 11:08 ALT 21 U/L (0-41) 03/09/24 11:08 Alkaline Phosphatase 75 U/L (40-130) 03/09/24 11:08 Troponin T Baseline 9 ng/L (0-15) 03/09/24 11:08 Troponin T 120 Minute 8.32 ng/L (0-15) 03/09/24 12:49 Delta Troponin T -0.68 ABS# (0-10) L 03/09/24 12:49 Troponin T Hi Sens 6Hr 8.86 ng/L (0-15) 03/09/24 17:25 Troponin T Hi Sens 6Hr Delta -0.14 ng/L (0-12) L 03/09/24 17:25 NT-Pro-B Natriuret Pep < 36 pg/mL (0-125) 03/09/24 12:49 Total Protein 7.7 g/dL (6.6-8.7) 03/09/24 11:08 Albumin 4.3 g/dL (3.5-5.2) 03/09/24 11:08 Globulin 3.4 g/dL (1.3-4.6) 03/09/24 11:08 Triglycerides 107 mg/dL (0-150) 03/10/24 05:06 Cholesterol 144 mg/dL (0-200) 03/10/24 05:06 LDL Cholesterol, Calc 86 mg/dL (50-129) 03/10/24 05:06 HDL Cholesterol 37 mg/dL (60-100) L 03/10/24 05:06 LDL/HDL Ratio 2.32 RATIO (0.00-3.22) 03/10/24 05:06 Cholesterol/HDL Ratio 3.89 mg/dL (1.0-5.00) 03/10/24 05:06 Vitals Last Vital Signs Temp 97.9 F 03/10/24 11:20 Pulse 53 L 03/10/24 11:20 Resp 20 H 03/10/24 11:20 BP 129/78 03/10/24 11:20 Pulse Ox 93 03/10/24 11:20 O2 Del Method Room Air 03/10/24 11:20 Discharge Plan Discharge Patient Disposition: Home Condition: Stable Prescriptions: New aspirin 81 mg Tablet,Delayed Release (Dr/Ec) 81 mg PO DAILY Qty: 60 2RF amlodipine 10 mg Tablet 10 mg PO DAILY Qty: 60 3RF Continued fluoxetine 40 mg capsule 40 mg PO QPM atorvastatin 20 mg tablet 20 mg PO QPM meloxicam 15 mg tablet 15 mg PO QPM Discharge Orders: Discharge Order (Routine); Ordered 03/10/24 Ordered By: Amisha Mansfield Referrals: Jarrett Toscano [Primary Care Provider] - Vale Morris FNP [Nurse Practitioner] - 3 weeks Discharge Diet: Cardiac Discharge Activity: Increase activity as tolerated Patient Instructions: Opioid Safety Discharge Attestations Time Spent in Discharge Care*: greater than 30 min Quality Metrics Clinical Quality Measures [ No reported AMI, CVA or VTE this stay] Coding Level of Care Code Acute Code for [facility] Fwd Diagnoses Chest pain R07.9 Dyspnea on minimal exertion R06.09 Bradycardia R00.1 Dyslipidemia E78.5
--- NOTE | 2024-03-10 12:47 | PC.NURSE ---
Patient discharged to home. Medications transmitted to [place], [place]. Instruction given regarding new medications, follow up appointments and site care/restrictions. Patient and spouse verbalized complete understanding. Both right femoral and right radial access site dressings remain c,d,i with NO s/s of bleeding or hematoma formation. Patient denies pain to either site. Patient taken by wheelchair to private vehicle via wheelchair with spouse to drive.
[2024-03-10 13:06] LABS: Thyroid Stimulating Hormone 3.12 uIU/mL (0.27-4.20)
== END 2024-03-10 12:56 | disposition home or self-care (01) ==
LOC: ER 14:47 → CSU 19:17
PROVIDERS: Internal Medicine; Admitting Provider Hospitalist; Emergency Provider Physician Assistant; PCP Family Medicine; Visit Provider Internal Medicine
DX: I25.10 Atherosclerotic heart disease of native coronary artery without angina pectoris (principal); R06.09 Other forms of dyspnea; R00.1 Bradycardia, unspecified; E78.5 Hyperlipidemia, unspecified; M19.90 Unspecified osteoarthritis, unspecified site; F32.A Depression, unspecified; F17.200 Nicotine dependence, unspecified, uncomplicated
CPT/HCPCS: 36415; 71045; 80053; 80061; 83036; 83735; 83880; 84443; 84484; 85025; 85347; 85378; 92978; 93005; 93306; 93454; 93571; 96372; 96374; 96375; 99152; 99153; 99285; C1753; C1760; C1769; C1887; C1894; G0269; G0378; J1644; J1650; J2250; J3010; J3490; J7030; Q0163; Q9967

== ENCOUNTER → 2024-03-23 14:12 | Outpatient (BNVA) | payer MEDICARE, SELFPAY | PROVIDERS: PCP Family Medicine; Visit Provider Nurse Practitioner Family | DX: I25.10 Atherosclerotic heart disease of native coronary artery without angina pectoris (principal); I10 Essential (primary) hypertension; F17.210 Nicotine dependence, cigarettes, uncomplicated | CPT/HCPCS: 99214 ==

== ENCOUNTER 2024-04-21 10:03 | Outpatient (CLI) | payer MEDICARE, SELFPAY | END 2024-04-21 10:04 | disposition home or self-care (01) | PROVIDERS: PCP Family Medicine; Visit Provider Nurse Practitioner Family | DX: R06.09 Other forms of dyspnea (principal); R94.2 Abnormal results of pulmonary function studies | CPT/HCPCS: 94010; 94726; 94729 ==

== ENCOUNTER → 2024-05-27 13:18 | Outpatient (BNVA) | payer MEDICARE, SELFPAY | PROVIDERS: PCP Family Medicine; Visit Provider Internal Medicine | DX: I25.10 Atherosclerotic heart disease of native coronary artery without angina pectoris (principal); I10 Essential (primary) hypertension; Z72.0 Tobacco use | CPT/HCPCS: 99214 ==

== ENCOUNTER 2024-07-17 06:12 | Emergency (ER) | payer MEDICARE, SELFPAY ==
[2024-07-17 06:15] VITALS: BP 156/83; PULSE 56; RESP 23; O2SAT 100; BMI 29.8
--- NOTE | 2024-07-17 06:29 | ECG_ITS ---
[facility] Test Date: 2024-07-17 Pat Name: Jon Salas Department: Room: Gender: Male Director Nursing Service: : 1955 Requested By: Delvin Poole Order Number: [id number] Raimundo MD: Mabel Clemente M.D. Measurements Intervals [place] Rate: 55 P: 44 CA: 164 QRS: 19 QRSD: 104 T: 53 QT: 434 QTc: 417 Interpretive Statements SINUS BRADYCARDIA Compared to ECG 03/09/2024 18:08:49 Ventricular premature complex(es) no longer present Electronically Signed On 07-17-2024 20:04:09 CDT by Mabel Clemente M.D. [id number]
--- NOTE | 2024-07-17 06:29 | XRR_ITS ---
PROCEDURE INFORMATION: Exam: XR Chest Exam date and time: 07/17/2024 6:33 AM Age: 68 years old Clinical indication: Pain; Chest pressure; Additional info: Cp TECHNIQUE: Imaging protocol: Radiologic exam of the chest. Views: 1 view. COMPARISON: CR XR chest 1V portable [id number] 03/09/2024 11:28 AM FINDINGS: Lungs: Unremarkable. No consolidation. Pleural spaces: Unremarkable. No pleural effusion. No pneumothorax. Heart/Mediastinum: Unremarkable. No cardiomegaly. Bones/joints: Unremarkable. XR/XR chest 1V portable [id number] IMPRESSION: No acute findings.
--- NOTE | 2024-07-17 06:31 | ED_ITS ---
HPI - Chest Pain 2 General: Chief Complaint: Chest Pain Stated Complaint: CP/SOB Time Seen by Provider: 07/17/24 06:22 Source: patient Mode of arrival: ambulatory Limitations: no limitations History of Present Illness: This gentleman makes his way to the emergency room this morning because of chest pressure. He states that he was awoken this morning about 4 AM by his symptoms. He states central chest feels heavy without any significant radiation or associated diaphoresis or nausea. No radiation to his back ripping tearing sensation etc. He does also feel some concomitant shortness of breath. He states over the past week he has been having episodes of chest heaviness almost daily sometimes lasting throughout the day. Does the first time this week he has been awakened by this symptoms. He states he has been told he has blockages but not enough to repair. He states he has 1 coronary artery that has about approximately 48% and other approximately 50% narrowing. He states that he is seen Dr. Murphy cardiology who thinks there may be some COPD at play as well. He admits to still smoking tobacco. He states that he does not have much energy to do anything outside the house. He is not taking his morning medications. He takes long-acting nitrates but has not taken sublingual nitroglycerin denies any recent illness cough fever chills etc. Pain location: substernal Pain radiation: none Severity: moderate Quality: heaviness Associated symptoms: Deny abdominal pain, fever(s), nausea, palpitations, syncope or vomiting Risk Factors: Coronary artery disease risk factors: smoking history Related Data Home Medications Medication Instructions Recorded Confirmed fluoxetine 40 mg capsule 40 mg PO QPM 09/10/21 05/27/24 meloxicam 15 mg tablet 15 mg PO QPM 03/09/24 05/27/24 atorvastatin 20 mg tablet 20 mg PO QPM 03/23/24 05/27/24 amlodipine 10 mg tablet 5 mg PO DAILY 05/27/24 05/27/24 isosorbide mononitrate 30 mg 60 mg PO DAILY 05/27/24 05/27/24 tablet,extended release 24 hr Previous Rx's Medication Instructions Recorded aspirin 81 mg tablet,delayed 81 mg PO DAILY #60 tabs 03/10/24 release albuterol sulfate 90 mcg/actuation 2 inh inhalation Q8H PRN shortness 07/17/24 aerosol inhaler of breath or wheezing #6.7 grams Allergies Allergy/AdvReac Type Severity Reaction Status Date / Time cyclobenzaprine Allergy ADR-Drowsy Verified 05/27/24 13:35 tizanidine Allergy ADR-Drowsy Verified 05/27/24 13:35 Review of Systems 2 Const: Denies: fever(s) or chills ENMT: Denies: throat pain, odynophagia, nasal discharge or nasal congestion Card: Reports: chest pain and dyspnea on exertion; Denies: palpitations, syncope or pre-syncope Resp: Denies: productive cough or non-productive cough GI: Denies: abdominal pain, nausea, vomiting or diarrhea : Denies: difficulty urinating or dysuria Musc: Denies: neck pain, back pain, extremity pain or extremity swelling Skin/Breast: Denies: rash, pruritus or erythema Neuro: Denies: headache(s), numbness in extremities or weakness in extremities Psych: Denies: anxiety, depression or mood swings Endo: Denies: polyuria or polydipsia PFSH ED 2 PFSH: Medical History Hypertension Coronary artery disease Bradycardia Chest pain Dyspnea on minimal exertion Lumbar facet arthropathy Osteoarthritis Dyslipidemia Depression Surgical History No pertinent past surgical history Family History Father , age 58 heart disease CAD (coronary artery disease) Brother , age 70 heart disease CAD (coronary artery disease) Brother CAD (coronary artery disease) Social History Smoking and tobacco/nicotine status: light tobacco/nicotine user Alcohol intake: never Substance/Drug Use: never Household members: spouse Current occupation: [employer] Physical Exam 2 Narrative: EXAM NARRATIVE: Is alert makes good eye contact answers questions a goal-directed fashion. Speaks in somewhat short sentences and somewhat breathless fashion Const: COMMON NORMALS: no acute distress, average body habitus, patient oriented x3 and alert GENERAL APPEARANCE: cooperative HENMT: COMMON NORMALS: Normal nasal mucous membranes and turbinates present, moist oral mucous membranes and oropharynx normal HEAD & SCALP: normal to inspection FACE & SINUS: face symmetric NOSE: Normal nasal mucous membranes and turbinates present Eye: COMMON NORMALS: Equal, round and reactive pupils present, EOMs intact bilaterally and conjunctivae normal CONJUNCTIVA: Yes conjunctivae normal P UPIL: Yes Equal, round and reactive pupils present Neck/C-Spine: COMMON NORMALS: full ROM, no lymphadenopathy, no JVD and No carotid bruits Chest: COMMONS NORMALS: normal inspection of the chest and normal palpation of entire chest wall Resp: COMMON NORMALS: normal respiratory effort, No use of accessory muscles and clear to auscultation bilaterally AUSCULTATION: clear to auscultation bilaterally Cardio: COMMON NORMALS: no JVD, regular rate, regular rhythm, No murmurs present (Cardio) and Peripheral pulses 2+ throughout RATE: regular rate R HYTHM: regular rhythm PERIPHERAL PULSES: Peripheral pulses 2+ throughout GI: COMMON NORMALS: Normal to inspection, nondistended, normoactive bowel sounds present, Soft to palpation and non-tender PALPATION: Yes Soft to palpation : COMMON NORMALS: Yes no CVA tenderness BLADDER/KIDNEY EXAM: Yes no CVA tenderness Back/Pelvis: COMMON NORMALS: no CVA tenderness, thoracic and lumbar spine normal to inspection, no thoracic nor lumbar tenderness and thoraco-lumbar ROM normal Extremity: COMMON NORMALS: normal to inspection, full ROM, capillary refill normal, no calf tenderness and no pedal edema Neuro: COMMON NORMALS: patient oriented x3, moves all extremities, no focal motor deficits and no sensory deficits noted SENSORIUM/ORIENTATION: Yes alert Psych: COMMON NORMALS: mental status grossly normal Skin: COMMON NORMALS: no rashes or lesions noted, turgor normal and no jaundice GENERAL SKIN EXAM: no rashes or lesions noted and turgor normal Course 2 Reevaluation(s): Reevaluation #1: Patient states he got some relief with initial nitroglycerin we will proceed with additional nitro. is now here and relates that he has been complaining of this chest pressure since February and has never really gone away. Time: 07:10 Reevaluation #2: Bedside ultrasound was used to visualize the abdominal aorta. Using a phased array probe the abdominal aorta was visualized both AP and longitudinally. Maximum AP diameter was noted to be 2.05 cm and the maximum sagittal diameter was noted to be 2.58 cm. Patient's at this point in time does not have any evidence to suggest ACS or other worrisome condition. Does have mild COPD which may or may not be a contributing factor to his symptoms. We also discussed that perhaps there may be a mild component of sadness or depression which she acknowledges as well. is present during this discussion and also supports those observations. Will give him a trial of a metered-dose inhaler and see if that improves some of his subjective symptoms and continue his workup as an outpatient via cardiology and/or pulmonology as indicated. At this point in time he has no evidence of an ongoing emergency medical condition can be safely discharged. Time: 09:38 Vital Signs: Vital signs: Vital Signs Pulse Rate 46 L 07/17/24 09:00 Respiratory Rate 16 07/17/24 07:30 Blood Pressure 135/76 07/17/24 09:00 Pulse Oximetry 98 07/17/24 09:00 Oxygen Delivery Me thod Room Air 07/17/24 09:00 MDM - Chest Pain Medical Decision Making This patient presents to the emerged from as noted in HPI. The patient has a history of noncritical coronary artery stenosis. His evaluation will include differential for chest pain to include possible ACS, pneumonia, CHF etc. Imaging laboratories and electrocardiograms to be obtained and reviewed. Initial electrocardiogram does not show any acute ischemic changes. Serial troponin and diet and EKGs were obtained which revealed no elevations in high-sensitivity troponin no dynamic EKG changes. Chest x-ray other laboratories were reassuring. D-dimer was age-adjusted and puts him at extremely low risk for thromboembolic events. Bedside ultrasound revealed a normal diameter aorta. No evidence of other ongoing serious medical conditions at this time. He will be discharged with a trial of a metered-dose inhaler with outpatient follow-up. Medical Records I reviewed the patient's medical records. Echocardiogram of February of this year revealed ejection fraction 55% or thereabouts. Had mild mitral and pulmonic valvular regurgitation Lab Data I reviewed the patient's lab results. 07/17/24 06:20 07/17/24 06:20 Radiology Impressions Chest X-Ray 07/17/24 06:29 IMPRESSION: No acute findings. Laboratory Results WBC 5.93 10^3/uL (3.29-11.43) 07/17/24 06:20 RBC 4.59 10^6/uL (3.85-5.65) 07/17/24 06:20 Hgb 14.40 g/dL (11.27-16.99) 07/17/24 06:20 Hct 42.2 % (37-53) 07/17/24 06:20 MCV 91.9 fl (82-101) 07/17/24 06:20 MCH 31.4 pg (27-33) 07/17/24 06:20 MCHC 34.1 g/dL (30-55) 07/17/24 06:20 RDW 12.5 % (12.1-15.1) 07/17/24 06:20 Plt Count 214 10^3/cmm (157-399) 07/17/24 06:20 MPV 9.4 fL (7.4-10.4) 07/17/24 06:20 Neut % (Auto) 54.7 % 07/17/24 06:20 Lymph % (Auto) 29.8 % 07/17/24 06:20 Angelina % (Auto) 9.8 % 07/17/24 06:20 Eos % (Auto) 4.7 % 07/17/24 06:20 Baso % (Auto) 0.8 % 07/17/24 06:20 Neut # (Auto) 3.24 10^3/uL (1.8-7.7) 07/17/24 06:20 Lymph # (Auto) 1.8 10^3/uL (0.8-4.8) 07/17/24 06:20 Angelina # (Auto) 0.6 10^3/uL (0.2-0.9) 07/17/24 06:20 Eos # (Auto) 0.3 10^3/uL (0.0-0.8) 07/17/24 06:20 Baso # (Auto) 0.1 10^3/uL (0.0-0.1) 07/17/24 06:20 Nucleated RBC % (auto) 0 % 07/17/24 06:20 Nucleated RBCs # 0.0 /100WBC 07/17/24 06:20 D-Dimer 0.58 ug/mLFEU (0-0.59) 07/17/24 06:20 Sodium 141 mmol/L (136-145) 07/17/24 06:20 Potassium 3.9 mmol/L (3.5-5.1) 07/17/24 06:20 Chloride 109 mmol/L (98-107) H 07/17/24 06:20 Carbon Dioxide 20 mmol/L (22-29) L 07/17/24 06:20 Anion Gap 15.9 (5-19) 07/17/24 06:20 BUN 21 mg/dL (8-23) 07/17/24 06:20 Creatinine 1.0 mg/dL (0.7-1.2) 07/17/24 06:20 GFR Calculation 74.1 mL/min (90-130) L 07/17/24 06:20 Glucose 99 mg/dL (65-115) 07/17/24 06:20 Calculated Osmolality 295 mOsm/kg (285-295) 07/17/24 06:20 Calcium 8.6 mg/dL (8.5-10.5) 07/17/24 06:20 Total Bilirubin 0.3 mg/dL (0.15-1.2) 07/17/24 06:20 AST 20 U/L (0-40) 07/17/24 06:20 ALT 17 U/L (0-41) 07/17/24 06:20 Alkaline Phosphatase 85 U/L (40-130) 07/17/24 06:20 Troponin T Baseline 10 ng/L (0-15) 07/17/24 06:20 Troponin T 120 Minute 9.37 ng/L (0-15) 07/17/24 08:21 Delta Troponin T -0.63 ABS# (0-10) L 07/17/24 08:21 NT-Pro-B Natriuret Pep < 36 pg/mL (0-125) 07/17/24 06:20 Total Protein 6.5 g/dL (6.6-8.7) L 07/17/24 06:20 Albumin 4.2 g/dL (3.5-5.2) 07/17/24 06:20 Globulin 2.3 g/dL (1.3-4.6) 07/17/24 06:20 All radiology interpretation(s) finalized by discharge EKG Data EKG 1: I personally reviewed and interpreted this EKG as follows: Interpretation: Contemporaneous review of resting EKG reveals a sinus bradycardia 55 bpm. Normal NV interval, QRS duration, corrected QT interval. No acute ST-T wave changes of concern noted. No interval changes from EKGs recorded in the system EKG 2: I personally reviewed and interpreted this EKG as follows: Interpretation: Contemporaneous review of second EKG this visit reveals ventricular rate of 45 bpm consistent with sinus bradycardia. Normal NV interval, QRS duration, corrected QT intervals normal. Normal axis. No acute ST-T wave changes and no dynamic changes from tracing earlier this visit Discharge Plan Discharge Patient Disposition: Home Clinical Impression: Tobacco use Chest pain Qualifiers: Chest pain type: unspecified Qualified Code(s): R07.9 - Chest pain, unspecified COPD (chronic obstructive pulmonary disease) Qualifiers: COPD type: unspecified COPD Qualified Code(s): J44.9 - Chronic obstructive pulmonary disease, unspecified Condition: Stable Prescriptions: New albuterol sulfate 90 mcg/actuation HFA aerosol inhaler 2 inh inhalation Q8H PRN (Reason: shortness of breath or wheezing) Qty: 6.7 1RF No Action fluoxetine 40 mg capsule 40 mg PO QPM isosorbide mononitrate 30 mg tablet extended release 24 hr 60 mg PO DAILY amlodipine 10 mg tablet 5 mg PO DAILY meloxicam 15 mg tablet 15 mg PO QPM aspirin 81 mg Tablet,Delayed Release (Dr/Ec) 81 mg PO DAILY Qty: 60 2RF atorvastatin 20 mg tablet 20 mg PO QPM Discharge Orders: Discharge ED (Routine); Ordered 07/17/24 Ordered By: Delvin Poole Referrals: Jarrett Toscano [Primary Care Provider] - Discharge Diet: Advance as tolerated Discharge Activity: Increase activity as tolerated Patient Instructions: Opioid Safety, Pain Management Activity Restrictions/Additional Instructions: As discussed while you are in the emergency department did not have any evidence today that suggest a serious condition such as a heart attack, heart failure, blood clot, pneumonia or other serious condition that needed admission to the hospital. We have provided a inhaler to use as a trial to see if this improves your symptoms. We also strongly recommend that you stop smoking. If you develop any new or other concerning symptoms sustained chest pain fevers chills etc. return to this or the nearest emergency department. Otherwise follow-up with your wound specialist as scheduled. 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
[2024-07-17] MEDS: aspirin 81 mg Chew Tablet 324 MG PO (06:34)
[2024-07-17] MEDS: nitroglycerin 0.4 mg sublingual Tablet SUBLINGUAL ×2 (06:35→07:03)
[2024-07-17 06:51] LABS: Basophils # 0.1 10^3/uL (0.0-0.1); Basophils % 0.8 %; Eosinophils # 0.3 10^3/uL (0.0-0.8); Eosinophils % 4.7 %; Hematocrit 42.2 % (37-53); Lymphocytes # 1.8 10^3/uL (0.8-4.8); Lymphocytes % 29.8 %; Mean Corpuscular HGB Conc 34.1 g/dL (30-55); Mean Corpuscular Hemoglobin 31.4 pg (27-33); Mean Corpuscular Volume 91.9 fl (82-101); Mean Platelet Volume 9.4 fL (7.4-10.4); Monocytes # 0.6 10^3/uL (0.2-0.9); Monocytes % 9.8 %; Neutrophils # 3.24 10^3/uL (1.8-7.7); Neutrophils % 54.7 %; Nucleated Red Blood Cells % 0 %; Platelet Count 214 10^3/cmm (157-399); Red Blood Count 4.59 10^6/uL (3.85-5.65); Red Cell Distribution Width 12.5 % (12.1-15.1); White Blood Count 5.93 10^3/uL (3.29-11.43)
[2024-07-17 07:00] LABS: Troponin(5th) Baseline 10 ng/L (0-15)
[2024-07-17 07:05] VITALS: BP 124/67; PULSE 51; O2SAT 99
[2024-07-17 07:09] LABS: Alanine Aminotransferase 17 U/L (0-41); Albumin Level 4.2 g/dL (3.5-5.2); Alkaline Phosphatase 85 U/L (40-130); Anion Gap 15.9 (5-19); Aspartate Amino Transferase 20 U/L (0-40); Blood Urea Nitrogen 21 mg/dL (8-23); Calcium 8.6 mg/dL (8.5-10.5); Carbon Dioxide 20 mmol/L (22-29); Chloride 109 mmol/L (98-107); Creatinine Clr Calc Pharmacy 85.2749; Globulin 2.3 g/dL (1.3-4.6); Glomerular Filtration Rate 74.1 mL/min (90-130); Glucose 99 mg/dL (65-115); NT Pro B Type Natriuretic Pept < 36 pg/mL (0-125); Osmolality Calculated 295 mOsm/kg (285-295); Potassium 3.9 mmol/L (3.5-5.1); Sodium 141 mmol/L (136-145); Total Bilirubin 0.3 mg/dL (0.15-1.2); Total Protein 6.5 g/dL (6.6-8.7)
[2024-07-17 07:10] LABS: D Dimer 0.58 ug/mLFEU (0-0.59)
[2024-07-17 07:30] VITALS: BP 121/61; PULSE 50; RESP 16; O2SAT 99
[2024-07-17 08:30] VITALS: BP 145/75; PULSE 47; O2SAT 97
[2024-07-17 08:46] LABS: Troponin 5 2HR 9.37 ng/L (0-15)
--- NOTE | 2024-07-17 08:54 | ECG_ITS ---
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 Measurements Intervals [place] Rate: 45 P: 58 TX: 180 QRS: 9 QRSD: 103 T: 42 QT: 470 QTc: 409 Interpretive Statements SINUS BRADYCARDIA Compared to ECG 07/17/2024 06:15:31 No significant changes Electronically Signed On 07-17-2024 20:07:20 CDT by Mabel Clemente M.D. [email or web address] ([id number]
[2024-07-17 09:00] VITALS: BP 135/76; PULSE 46; O2SAT 98
[2024-07-17 09:02] LABS: Troponin 5 2HR Delta -0.63 ABS# (0-10)
[2024-07-17 09:51] VITALS: BP 137/68; PULSE 60; O2SAT 97
== END 2024-07-17 09:53 | disposition home or self-care (01) ==
PROVIDERS: Emergency Provider Emergency Medicine; PCP Family Medicine
DX: R07.9 Chest pain, unspecified (principal); J44.9 Chronic obstructive pulmonary disease, unspecified; Z79.82 Long term (current) use of aspirin; R00.1 Bradycardia, unspecified; I10 Essential (primary) hypertension; I25.10 Atherosclerotic heart disease of native coronary artery without angina pectoris; E78.5 Hyperlipidemia, unspecified; Z72.0 Tobacco use
CPT/HCPCS: 36415; 71045; 80053; 83880; 84484; 85025; 85378; 93005; 99285

== ENCOUNTER → 2024-11-16 07:30 | Outpatient (BNVA) | payer MEDICARE, SELFPAY | PROVIDERS: PCP Family Medicine; Referring Provider Orthopaedic Surgery; Visit Provider Anesthesiology Pain Medicine | DX: M47.816 Spondylosis without myelopathy or radiculopathy, lumbar region | CPT/HCPCS: 99204 ==

== ENCOUNTER → 2024-12-20 08:35 | Outpatient (BNVA) | payer MEDICARE, SELFPAY | PROVIDERS: PCP Family Medicine; Visit Provider Anesthesiology Pain Medicine | DX: M47.816 Spondylosis without myelopathy or radiculopathy, lumbar region (principal) | CPT/HCPCS: 99214 ==

== ENCOUNTER → 2024-12-29 09:13 | Outpatient (BNVA) | payer MEDICARE, SELFPAY | PROVIDERS: PCP Family Medicine; Visit Provider Anesthesiology Pain Medicine | DX: M47.816 Spondylosis without myelopathy or radiculopathy, lumbar region (principal); M54.9 Dorsalgia, unspecified | CPT/HCPCS: 64493; 64494; 64495; J3490 ==

== ENCOUNTER → 2025-01-12 09:19 | Outpatient (BNVA) | payer MEDICARE, SELFPAY | PROVIDERS: PCP Family Medicine; Visit Provider Nurse Practitioner Family | DX: M54.42 Lumbago with sciatica, left side (principal); M54.41 Lumbago with sciatica, right side; G89.29 Other chronic pain; M47.816 Spondylosis without myelopathy or radiculopathy, lumbar region | CPT/HCPCS: 99213 ==

== ENCOUNTER → 2025-01-25 14:39 | Outpatient (BNVA) | payer MEDICARE, SELFPAY | PROVIDERS: PCP Family Medicine; Visit Provider Anesthesiology Pain Medicine | DX: M54.9 Dorsalgia, unspecified (principal); M47.816 Spondylosis without myelopathy or radiculopathy, lumbar region | CPT/HCPCS: 64493; 64494; 64495; J3490; J9999 ==

== ENCOUNTER → 2025-02-08 08:13 | Outpatient (BNVA) | payer MEDICARE, SELFPAY | PROVIDERS: PCP Family Medicine; Visit Provider Anesthesiology Pain Medicine | DX: M54.9 Dorsalgia, unspecified (principal); M47.816 Spondylosis without myelopathy or radiculopathy, lumbar region | CPT/HCPCS: 99214 ==

== ENCOUNTER → 2025-02-16 14:32 | Outpatient (BNVA) | payer MEDICARE, SELFPAY | PROVIDERS: PCP Family Medicine; Visit Provider Anesthesiology Pain Medicine | DX: M47.816 Spondylosis without myelopathy or radiculopathy, lumbar region (principal); M54.9 Dorsalgia, unspecified | CPT/HCPCS: 64435; 64635; 64636; J1010; J9999 ==

== ENCOUNTER → 2025-02-28 14:21 | Outpatient (BNVA) | payer MEDICARE, SELFPAY | PROVIDERS: PCP Family Medicine; Visit Provider Anesthesiology Pain Medicine | DX: M25.552 Pain in left hip (principal); M54.9 Dorsalgia, unspecified; M47.816 Spondylosis without myelopathy or radiculopathy, lumbar region | CPT/HCPCS: 73502; 99214 ==

== ENCOUNTER → 2025-09-05 13:34 | Outpatient (BNVA) | payer MEDICARE, SELFPAY | PROVIDERS: PCP Family Medicine; Visit Provider Anesthesiology Pain Medicine | DX: M47.816 Spondylosis without myelopathy or radiculopathy, lumbar region (principal); M16.12 Unilateral primary osteoarthritis, left hip | CPT/HCPCS: 99214 ==